=== PATIENT | male | born 1965 | race Asian ===

== ENCOUNTER 2018-07-03 13:01 | Emergency (ER) | payer OTHER ==
[~2018-07-03] VITALS: Ht 188 cm; Wt 68.0 kg
[2018-07-03 14:23] LABS: PLATELET COUNT 227 K/uL (142-355)
[2018-07-03 16:15] VITALS: BP 100/60; TEMP 97.5
== END 2018-07-03 16:16 | disposition home or self-care (01) ==
LOC: ED 13:01
PROVIDERS: Family Medicine
DX: A08.4 Viral intestinal infection, unspecified (principal); E86.0 Dehydration
CPT/HCPCS: 36415; 80053; 80307; 81000; 85027; 87502; 87651; 96361; 96374; 99284; J2405

== ENCOUNTER 2018-07-10 08:02 | Emergency (ER) | payer OTHER ==
[~2018-07-10] VITALS: Ht 188 cm; Wt 68.0 kg
[2018-07-10 08:17] VITALS: TEMP 100.6
[2018-07-10 09:06] LABS: PLATELET COUNT 304 K/uL (142-355)
[2018-07-10 09:15] LABS: POTASSIUM 3.8 mmol/L (3.6-5.2)
[2018-07-10 10:42] VITALS: BP 121/68
== END 2018-07-10 10:42 | disposition home or self-care (01) ==
LOC: ED 08:02
PROVIDERS: Emergency Medicine
DX: N39.0 Urinary tract infection, site not specified (principal); N30.00 Acute cystitis without hematuria
CPT/HCPCS: 36415; 80053; 81000; 85027; 87088; 96372; 99283; J0696

== ENCOUNTER 2018-07-16 15:18 | Emergency (ER) | payer OTHER ==
[~2018-07-16] VITALS: Ht 188 cm; Wt 68.0 kg
[2018-07-16 17:17] LABS: PLATELET COUNT 321 K/uL (142-355)
[2018-07-16 18:24] VITALS: BP 116/87; TEMP 98
== END 2018-07-16 18:29 | disposition home or self-care (01) ==
LOC: ED 15:18
PROVIDERS: Family Medicine
DX: I73.9 Peripheral vascular disease, unspecified (principal); M79.604 Pain in right leg
CPT/HCPCS: 80053; 80307; 81000; 85027; 85379; 96372; 99283; J1885

== ENCOUNTER 2018-07-25 13:46 | Emergency (ER) | payer OTHER ==
[~2018-07-25] VITALS: Ht 188 cm; Wt 68.0 kg
[2018-07-25] MEDS ORDERED: CYCL10TA35 PO (14:06)
[2018-07-25] MEDS ORDERED: NEURONTIN 100M100 MG PO (14:07)
[2018-07-25 14:55] VITALS: BP 115/76; TEMP 97.8
== END 2018-07-25 14:55 | disposition home or self-care (01) ==
LOC: ED 13:46
DX: I73.89 Other specified peripheral vascular diseases (principal); M79.604 Pain in right leg
CPT/HCPCS: 96372; 99282; J1885

== ENCOUNTER 2018-07-26 14:04 | Outpatient (CLI) | payer OTHER ==
[~2018-07-26 14:04] MED LIST: CYCL10TA35 PO; NEURONTIN 100M100 MG PO
== END 2018-07-26 19:33 | disposition home or self-care (01) ==
LOC: US 14:04
DX: M79.604 Pain in right leg (principal); M79.605 Pain in left leg